=== PATIENT | male | born 1970 | race Caucasian/White ===

== ENCOUNTER → 2016-06-07 | Outpatient (CLI) | payer OTHER ==
[~2016-06-07] MED LIST: BACTROBAN22 GM TP; HYDROCODONE-A1 UDTA3 PO
[2016-06-07 13:14] LABS: URINE CREATININE 150.4 mg/dL
[2016-06-07 13:15] LABS: URINE 24 HOUR CREATININE CALC 1.5 G/24HR (0.7-2.0)
[2016-06-07 15:02] LABS: MAGNESIUM 24 HR UR REFERENCE
[2016-06-07 15:09] LABS: OXALATE 24 HR URINE REFERENCE
[2016-06-11 07:37] LABS: URINE CALCIUM 7.7 mg/dL (()); URINE CALCIUM 24 HR 77 mg/24 h (55-300)
[2016-06-11 08:44] LABS: URIC ACID 24HR URINE 410 mg/24 h (120-820)
== END | disposition home or self-care (01) ==
LOC: CLAB 10:42
PROVIDERS: Internal Medicine Nephrology
DX: N20.0 Calculus of kidney (principal)
CPT/HCPCS: 82340; 82507; 82570; 83735; 83945; 83986; 84105; 84300; 84560

== ENCOUNTER 2016-06-15 06:38 | Inpatient (IN) | payer OTHER ==
--- NOTE | ~2016-06-15 | HP ---
Unit #: [id number] #: [id number] Patient: ROSA GRIJALVA [id number] [facility]. [place], [place] [address] [id number] I MR#: [id number] NAME: ROSA GRIJALVA ROOM: 56042 Age: 45 Sex: M Admission Date: 06/15/2016 : 1970 Attending Physician: Leslie Perdue M.D. Primary Care Physician: [facility]. HISTORY AND PHYSICAL CHIEF COMPLAINT Left side pain. HISTORY OF PRESENT ILLNESS The patient is a 45-year-old male with a past medical history of nephrolithiasis who presented to the emergency department for evaluation of the above. The patient states that he has had a two-day history of left-sided pain. He states that the pain is in his left upper abdomen and sometimes in the mid abdomen. He states that it is "mild." It is exacerbated by coughing or twisting. He states that it is similar to when he was diagnosed with a kidney stone but less severe. He denies any fever or chills, no cough or cold symptoms, no vomiting, no diarrhea, and no urinary symptoms. In the emergency department, lipase was noted to be 699. He had a CT of the abdomen and pelvis on May 08, 2016, that showed nonobstructing calculi in the right kidney. He is being admitted to [facility] for evaluation and further treatment. PAST MEDICAL HISTORY Nephrolithiasis. PAST SURGICAL HISTORY None. SOCIAL HISTORY The patient denies tobacco or alcohol use. FAMILY HISTORY Notable for his mother having hypertension. ALLERGIES BEE STING. HOME MEDICATIONS None. REVIEW OF SYSTEMS A complete review of systems is negative except as indicated in the History of Present Illness. PHYSICAL EXAMINATION VITAL SIGNS: Temperature is 97.9, pulse 86, respirations 18, blood Unit #: [id number] #: [id number] Patient: ROSA GRIJALVA pressure 133/82, and oxygen saturation is 100% on 3 liters. GENERAL: Patient is a very pleasant male in no acute distress. He is awake and alert. HEENT: Head is atraumatic. Mucous membranes are moist. NECK: Supple. Trachea is midline. CARDIOVASCULAR: Regular rate and rhythm. LUNGS: Clear to auscultation bilaterally with no increased work of breathing. ABDOMEN: Soft and mildly tender to palpation in the epigastric region. Bowel sounds are present in all four quadrants. EXTREMITIES: Nontender with no pedal edema. NEUROLOGIC: Patient is awake and alert. He follows commands. PSYCHIATRIC: Mood and affect are normal. Patient is cooperative. SKIN: Skin of examined areas is warm and dry. DIAGNOSTIC STUDIES LABORATORY: Complete blood count is completely normal. Troponin is less than 0.05. D-dimer 224. Comprehensive metabolic panel normal. Lipase 699. Urinalysis negative. Lipid panel shows cholesterol of 160, triglycerides 80, LDL 108, and HDL 36. CK is 221. IMAGING: CT of the abdomen and pelvis from May 08, 2016, showed no acute findings. Nonobstructive calculi were noted within the right kidney. ASSESSMENT The patient is a 45-year-old male with: 1. Acute pancreatitis with a lipase of 699. 2. History of nephrolithiasis. PLAN 1. Admit to med/surg. 2. Normal saline at 125 mL/hour. 3. P.r.n. Toradol. 4. P.r.n. Zofran. 5. N.p.o. except ice chips. 6. Check right upper quadrant ultrasound. 7. Consult Dr. Herman regarding pancreatitis. 8. Repeat labs in the morning including amylase and lipase. 9. SCDs for DVT prophylaxis. 10. Protonix. 11. Additional workup and consultants based on above. 1. Dictated by Malina Joya/renny TD: 06/15/2016 14:09 JOB #: [id number] Unit #: [id number] #: [id number] Patient: ROSA GRIJALVA HISTORY AND PHYSICAL X Leslie Perdue MD HISTORY AND PHYSICAL
--- NOTE | ~2016-06-15 | DS ---
Unit #: [id number] #: [id number] Patient: ROSA GRIJALVA [id number] [address] [id number] I MR#: [id number] NAME: ROSA GRIJALVA ROOM: 458 Age: 45 Sex: M Admission Date: 06/15/2016 : 1970 Discharge Date: 06/17/2016 Attending Physician: Margarito Fang M.D. Primary Care Physician: [facility]. DISCHARGE SUMMARY DIAGNOSIS ON ADMISSION Acute pancreatitis. DIAGNOSES ON DISCHARGE 1. Acute idiopathic pancreatitis, resolved. 2. History of renal stones. CONSULTATION Dr. Kyle Herman in GI consultation. DIAGNOSTIC STUDIES LABORATORY: The patient's creatinine is 0.7, sodium 137, potassium 4. AST and ALT are within normal limits. The patient's amylase is 380. Lipase is 481. WBC 7.8, hemoglobin 13.2, platelet count 169,000. Urinalysis is negative. Troponin is negative. Total cholesterol is 160, triglycerides 80, LDL 108, HDL 36. Troponin is negative. IMAGING: Right upper quadrant ultrasound was essentially negative. The patient had a CT scan of abdomen in May 08, 2016, which did not reveal any acute findings. There was nonobstructing calculi in right kidney. HOSPITAL COURSE A 45-year-old male presented to the hospital with abdominal pain. Details are as per admission H and P. The patient was admitted in the hospital and was treated for acute pancreatitis. The patient's workup including triglycerides and abdominal ultrasound is normal, so patient has acute idiopathic pancreatitis. The patient was seen by Dr. Kyle Herman in consultation. Today patient is comfortable, is tolerating diet and wants to go home. PHYSICAL EXAMINATION VITAL SIGNS: Reveal temperature of 98.1, pulse 70 per minute, respiratory rate 16 per minute, blood pressure is 119/83. HEENT: Revealed no conjunctival congestion. Sclerae is nonicteric. NECK: Supple. Trachea is central. RESPIRATORY: Revealed breath sounds equal bilaterally. There are no wheezes or crackles. HEART: Regular rate and rhythm. S1, S2. ABDOMEN: Soft, nontender. Bowel sounds are present in all four quadrants. Unit #: [id number] #: [id number] Patient: ROSA GRIJALVA NEUROLOGIC: Strength is 5/5 bilaterally. SKIN: Warm and dry. RECOMMENDATIONS ON DISCHARGE Condition is stable. Activity as tolerated. MEDICATIONS [place] 5/325 mg one p.o. q.6 hours p.r.n. #10 were dispensed. FOLLOWUP The patient is advised to follow up with primary care physician in one week and with GI as recommended. The patient is advised to call primary care physician or go to ER if his condition changes. Dictated by... Malina Damon/shayna TD: 06/17/2016 09:45 JOB #: [id number] CC: Kyle Herman M.D. [facility], [facility]. DISCHARGE SUMMARY X Margarito Fang MD X DISCHARGE SUMMARY
--- NOTE | ~2016-06-15 | US6 ---
[facility] A Service of [facility] RADIOLOGY TEXT RESULTS PATIENT: ROSA GRIJALVA LOCATION: [facility] 458- : 74 UNIT #: [id number] AGE: [address]: Margarito Fang MD SEX: M ORDER DR: [id number] [facility]. [place], [place] [address] [id number] I MR#: [id number] Acc #: [id number] NAME: ROSA GRIJALVA : 1970 SEX: M STUDY DATE/TIME: 06/16/2016 7:36 UNIT: [facility] ROOM: [facility] STUDY DESCRIPTION: US Abdominal Limited Attending Physician: Margarito Fang M.D. Ordering Physician: Leslie Perdue M.D. Primary Care Physician: [facility] MEDICAL IMAGING REPORT This report is preliminary unless electronic signature is present EXAM Right upper quadrant ultrasound 06/16/2016 INDICATION Abdominal pain, pancreatitis for 2 days. No prior surgeries. TECHNIQUE Sonographic imaging of the upper quadrant was performed. COMPARISON Correlation is made with CT 05/08/2016. FINDINGS Visualized aspects of the pancreas are unremarkable. The gallbladder demonstrates no evidence of cholelithiasis. Perhaps a trace amount of sludge. No sonographic Rice sign was described. Gallbladder otherwise unremarkable. Extrahepatic common bile duct measures 5 mm. Right kidney demonstrates a nonobstructing shadowing stone in the lower pole. Stones have also been demonstrated on prior CT 05/08/2016. The liver measures 15.5 cm long axis. No focal mass, ascites, or intrahepatic ductal dilatation. IMPRESSION 1. Essentially negative right upper quadrant ultrasound. Nonobstructing stone in the right kidney. Dictated by... Santos Ramirez M.D. THIS IS AN ELECTRONICALLY VERIFIED REPORT Santos Ramirez M.D. at 06/16/2016 5:33 PM [facility] A Service [facility] RADIOLOGY TEXT RESULTS PATIENT: ROSA GRIJALVA LOCATION: [facility] 458- : 74 UNIT #: [id number] AGE: [address]: Margarito Fang MD SEX: M ORDER DR: Anusha TD: 06/16/2016 15:59 JOB #: [id number] MEDICAL IMAGING REPORT COPY
[~2016-06-15 06:38] MED LIST changes: -HYDROCODONE-A1 UDTA3 PO
[2016-06-15 07:15] LABS: BASOPHIL% 0.2 % (0-2.5); EOSINOPHIL# 0.3 X10e3 (0-0.7); EOSINOPHIL% 3.8 % (0.0-7.0); HEMATOCRIT 44.5 % (38.0-50.0); HEMOGLOBIN 15.4 gm/dL (13.0-16.0); LYMPHOCYTE# 1.5 X10e3 (1.0-3.5); MEAN CELL VOLUME 87.6 FL (83-96); MEAN CORPUSCULAR HEMOGLOBIN 30.2 PG (28-34); MEAN CORPUSCULAR HGB CONC 34.5 g/dL (30-36); MEAN PLATELET VOLUME 7.6 FL (6.5-11.5); MONOCYTE# 0.7 X10e3 (0-1.0); MONOCYTE% 9.4 % (3.0-12.0); NEUTROPHIL# 4.9 X10e3 (1.5-7.1); NEUTROPHIL% 66.6 % (40-75); PLATELET COUNT 182 X10e3 (140-420); RED BLOOD COUNT 5.08 X10e (3.90-5.60); RED CELL DISTRIBUTION WIDTH 12.7 % (11.0-15.5); WHITE BLOOD COUNT 7.4 X10e3 (4.0-10.5)
[2016-06-15 07:30] LABS: DIFF IND NO
[2016-06-15 08:15] LABS: ALBUMIN SERUM 4.1 g/dL (3.5-5.0); ALKALINE PHOSPHATASE 50 U/L (32-92); ALT (SGPT) 23 U/L (10-40); AST (SGOT) 22 U/L (10-42); BILIRUBIN, DIRECT 0.1 mg/dL (0.0-0.2); BILIRUBIN,INDIRECT 0.8 mg/dL (0.0-0.9); BILIRUBIN,TOTAL 0.9 mg/dL (0.2-2.0); BLOOD UREA NITROGEN 11 mg/dL (9-23); CALCIUM SERUM 9.4 mg/dL (8.4-10.2); CARBON DIOXIDE 28 mmol/L (22-31); CHLORIDE 105 mmol/L (100-111); GLOM FILT RATE Estimated ABOVE60 mL/min (>60); GLUCOSE FASTING 106 mg/dL (70-110); LIPASE 699 U/L (22-51); POTASSIUM 3.9 mmol/L (3.5-5.1); PROTEIN TOTAL SERUM 7.3 g/dL (6.0-8.3); SODIUM 138 mmol/L (135-145)
[2016-06-15 08:22] LABS: URINE SOURCE CLEAN CATCH
[2016-06-15 08:27] LABS: URINE APPEARANCE CLEAR; URINE BILIRUBIN NEG (NEG); URINE BLOOD NEG (NEG); URINE COLOR YELLOW; URINE GLUCOSE NEG (NEG); URINE KETONE NEG (NEG); URINE LEUKOCYTE ESTERASE NEG (NEG); URINE NITRATE NEG (NEG); URINE PROTEIN NEG (NEG); URINE SPECIFIC GRAVITY 1.005 (1.003-1.035); URINE UROBILINOGEN 0.2 MG/DL (NEG)
[2016-06-15 08:32] LABS: CULTURE INDICATED? NO
[2016-06-15 11:07] LABS: CHOLESTEROL 160 mg/dL (0-200); HDL CHOLESTEROL 36 mg/dL (29-75); LDL CHOLESTEROL 108 mg/dL (-130); LDL/HDL RATIO 3 RATIO (0-4); TRIGLYCERIDES 80 mg/dL (10-160)
[2016-06-15 11:22] LABS: MB 2.2 ng/ml
[2016-06-15 17:26] LABS: %MB 1.1 % (0.0-4.0); MB 2.1 ng/ml
[2016-06-16 03:36] LABS: BASOPHIL% 0.3 % (0-2.5); EOSINOPHIL# 0.3 X10e3 (0-0.7); EOSINOPHIL% 4.7 % (0.0-7.0); HEMATOCRIT 41.2 % (38.0-50.0); LYMPHOCYTE# 1.8 X10e3 (1.0-3.5); LYMPHOCYTE% 25.8 % (17.0-45.0); MEAN CORPUSCULAR HEMOGLOBIN 29.9 PG (28-34); MEAN PLATELET VOLUME 7.4 FL (6.5-11.5); MONOCYTE# 0.7 X10e3 (0-1.0); MONOCYTE% 9.3 % (3.0-12.0); NEUTROPHIL# 4.3 X10e3 (1.5-7.1); NEUTROPHIL% 59.9 % (40-75); PLATELET COUNT 180 X10e3 (140-420); RED BLOOD COUNT 4.67 X10e (3.90-5.60); RED CELL DISTRIBUTION WIDTH 12.6 % (11.0-15.5); WHITE BLOOD COUNT 7.2 X10e3 (4.0-10.5)
[2016-06-16 03:37] LABS: DIFF IND NO
[2016-06-16 04:19] LABS: ALBUMIN SERUM 3.7 g/dL (3.5-5.0); ALKALINE PHOSPHATASE 48 U/L (32-92); ALT (SGPT) 19 U/L (10-40); AMYLASE 392 U/L (0-46); AST (SGOT) 20 U/L (10-42); BILIRUBIN,TOTAL 1.2 mg/dL (0.2-2.0); BLOOD UREA NITROGEN 13 mg/dL (9-23); CALCIUM SERUM 8.5 mg/dL (8.4-10.2); CARBON DIOXIDE 27 mmol/L (22-31); CHLORIDE 109 mmol/L (100-111); GLOM FILT RATE Estimated ABOVE60 mL/min (>60); GLUCOSE FASTING 102 mg/dL (70-110); LIPASE 480 U/L (22-51); POTASSIUM 3.8 mmol/L (3.5-5.1); PROTEIN TOTAL SERUM 6.9 g/dL (6.0-8.3); SODIUM 135 mmol/L (135-145)
[2016-06-17 03:46] LABS: BASOPHIL% 0.2 % (0-2.5); EOSINOPHIL# 0.4 X10e3 (0-0.7); EOSINOPHIL% 4.8 % (0.0-7.0); HEMOGLOBIN 13.2 gm/dL (13.0-16.0); LYMPHOCYTE% 25.4 % (17.0-45.0); MEAN CELL VOLUME 88.3 FL (83-96); MEAN PLATELET VOLUME 7.8 FL (6.5-11.5); MONOCYTE# 0.8 X10e3 (0-1.0); MONOCYTE% 10.7 % (3.0-12.0); NEUTROPHIL# 4.6 X10e3 (1.5-7.1); NEUTROPHIL% 58.9 % (40-75); PLATELET COUNT 169 X10e3 (140-420); RED BLOOD COUNT 4.41 X10e (3.90-5.60); RED CELL DISTRIBUTION WIDTH 12.5 % (11.0-15.5); WHITE BLOOD COUNT 7.8 X10e3 (4.0-10.5)
[2016-06-17 03:52] LABS: DIFF IND NO
[2016-06-17 04:31] LABS: ALBUMIN SERUM 3.5 g/dL (3.5-5.0); ALKALINE PHOSPHATASE 43 U/L (32-92); ALT (SGPT) 19 U/L (10-40); AMYLASE 380 U/L (0-46); AST (SGOT) 23 U/L (10-42); BILIRUBIN,TOTAL 0.8 mg/dL (0.2-2.0); BLOOD UREA NITROGEN 12 mg/dL (9-23); BUN/CREATININE RATIO 17.14; CALCIUM SERUM 8.6 mg/dL (8.4-10.2); CARBON DIOXIDE 27 mmol/L (22-31); CHLORIDE 103 mmol/L (100-111); CREATININE SERUM 0.7 mg/dL (0.6-1.4); GLOM FILT RATE Estimated ABOVE60 mL/min (>60); GLUCOSE FASTING 95 mg/dL (70-110); LIPASE 481 U/L (22-51); PROTEIN TOTAL SERUM 6.5 g/dL (6.0-8.3); SODIUM 137 mmol/L (135-145)
[2016-06-17] MEDS ORDERED: HYDROCODONE-A1 UDTA3 PO (10:12)
== END 2016-06-17 11:06 | disposition home or self-care (01) | DRG 440 ==
LOC: CED 06:38 → CEDOF 09:00 → C4B 14:34
PROVIDERS: Emergency Medicine; Family Medicine; Internal Medicine Gastroenterology
DX: K85.90 Acute pancreatitis without necrosis or infection, unspecified (principal); N20.0 Calculus of kidney; Z91.030 Bee allergy status
CPT/HCPCS: 36415; 76705; 80048; 80053; 80061; 80076; 81003; 82150; 82550; 82553; 83690; 84484; 85025; 85379; 96374; 99285; C9113; J1885

== ENCOUNTER → 2016-08-21 | Outpatient (CLI) | payer OTHER ==
[~2016-08-21] MED LIST changes: +HYDROCODONE-A1 UDTA3 PO
--- NOTE | ~2016-08-21 | CR7 ---
[facility] A Service of [facility] RADIOLOGY TEXT RESULTS PATIENT: ROSA GRIJALVA LOCATION: [facility] : 74 UNIT #: [id number] AGE: [address]: Prashanth Philippe MD SEX: M ORDER DR: [id number] [facility] [address] [place], [place] [address] [id number] O MR#: [id number] Acc #: [id number] NAME: ROSA GRIJALVA : 1970 SEX: M STUDY DATE/TIME: 08/21/2016 9:02 UNIT: [facility] ROOM: STUDY DESCRIPTION: CR Abdomen Single AP View Attending Physician: Prashanth Philippe M.D. Referring Physician: Prashanth Philippe M.D. Ordering Physician: Prashanth Philippe M.D. [facility] MEDICAL IMAGING REPORT This report is preliminary unless electronic signature is present EXAM Abdominal radiograph. HISTORY Stones. Status post lithotripsy one month. No complaints today. History of left stones. TECHNIQUE Supine radiographs of the abdomen are presented. COMPARISON CT examination 05/08/2016. FINDINGS The bony structures are unremarkable. Lung bases clear. Visualized cardiomediastinal contour normal. Bowel gas pattern normal. No calcification superimposed over the bilateral renal beds or course of the bilateral ureters. No bladder calculi are suggested. No free air. Where visible, the solid organ contours are unremarkable. Dictated by... Ronnie Salmeron M.D. THIS IS AN ELECTRONICALLY VERIFIED REPORT Ronnie Salmeron M.D. at 08/22/2016 11:32 PM VANIA/callie TD: 08/21/2016 14:21 JOB #: [id number] MEDICAL IMAGING REPORT Page 1 of 1 COPY
== END | disposition home or self-care (01) ==
LOC: CRAD 08:35
DX: N20.0 Calculus of kidney (principal)
CPT/HCPCS: 74000

== ENCOUNTER 2016-08-22 09:31 | Emergency (ER) | payer OTHER | END 2016-08-22 10:50 | disposition home or self-care (01) | LOC: CED 09:31 → CFTX 09:31 | DX: M54.42 Lumbago with sciatica, left side (principal); Z87.442 Personal history of urinary calculi; Z86.79 Personal history of other diseases of the circulatory system; Z98.890 Other specified postprocedural states; Z79.899 Other long term (current) drug therapy; Z91.030 Bee allergy status | CPT/HCPCS: 96372; 99283; J1885 ==